=== PATIENT | female | born 1955 | race African-American/Black ===

== ENCOUNTER 2022-03-04 07:08 | Outpatient (CLI) | payer BC, SELFPAY ==
--- NOTE | 2022-03-04 07:15 | CRLHL7_ITS ---
For Patients: As a result of the Century Cures Act, medical imaging exams and procedure reports are released immediately into your electronic medical record. You may view this report before your referring provider. If you have questions, please contact your health care provider. INDICATION: Left-sided back pain. COMPARISON: 11/13/2015 TECHNIQUE: Sagittal T1, T2, and STIR sequences. Axial T1 and T2 weighted sequences. FINDINGS: Mild lumbar curve convex the left. In sagittal plane, interval increased degenerative grade 1 anterolisthesis of L5 on S1 measures approximately 5 mm. Otherwise, normal alignment. No fractures. No vertebral body loss of height. No evidence injury. No suspicious osseous lesions. Normal conus terminates at L1-2. T12-L1 L1-2 L2-3: No spinal canal or neural foraminal narrowing. L2-3: Disc degeneration. Diffuse disc bulge eccentric to the left. No narrowing of spinal canal. Mild narrowing of the left neural foramen. No narrowing of the right neural foramen. L3-4: Disc degeneration. Diffuse disc bulge eccentric to the left. No narrowing of spinal canal. Mild to moderate narrowing of bilateral foramina. Mild facet arthropathy. L4-5: Disc degeneration. Posterior disc herniation. Mild narrowing of spinal canal. Mild to moderate right and moderate left neural foraminal narrowing. Potential impingement of the exiting left L4 nerve root. Mild facet arthropathy. L5-S1: Grade 1 anterolisthesis. Disc degeneration and unroofed posterior disc bulge. Mild narrowing of spinal canal. No cathy impingement of the traversing S1 nerve roots. Oblique orientation of bilateral foramina with mild right and moderate severe left neural foraminal narrowing. Impingement of the exiting left L5 nerve root. Severe facet arthropathy. Degenerative changes of the SI joints. IMPRESSION: 1. Interval increase degenerative grade 1 anterolisthesis of L5 on S1. 2. Otherwise normal alignment. No fractures. 3. Interval progression of lumbar spondylosis. 4. At L3-4, [id number] narrowing of either neural foramina 5. At L4-5, mild narrowing of spinal canal. Mild to moderate right and moderate left neural foraminal narrowing. Potential impingement of the exiting left L4 nerve root 6. At L5-S1, mild right and moderate severe left neural foraminal narrowing. Impingement of the exiting left L5 nerve root Dictated by Christos Briones MD @ 03/04/2022 10:30:42 AM (Electronically Signed)
== END 2022-03-04 07:09 | disposition home or self-care (01) ==
PROVIDERS: PCP Physician Assistant Medical; Visit Provider Orthopaedic Surgery Orthopaedic Surgery of the Spine
DX: M54.50 Low back pain, unspecified (principal); M51.26 Other intervertebral disc displacement, lumbar region; M47.896 Other spondylosis, lumbar region
CPT/HCPCS: 72148

== ENCOUNTER 2022-03-08 08:17 | Outpatient (CLI) | payer BC, SELFPAY ==
[2022-03-08 15:00] LABS: Albumin* 4.4 g/dL (3.3-5.0)
[2022-03-08 15:01] LABS: Chloride* 103 mmol/L (96-114); Potassium* 4.7 mmol/L (3.6-5.1); Sodium* 138 mmol/L (135-149)
[2022-03-08 15:03] LABS: Bilirubin Total* 0.6 mg/dL (0.1-1.5); Carbon Dioxide* 29 mmol/L (20-32); Cholesterol* 156 mg/dL (90-199); Estimated Glomerular Filt Rate 63 ml/min
[2022-03-08 15:04] LABS: Alanine Aminotransferase* 21 U/L (4-35); Alkaline Phosphatase* 68 U/L (40-150); Aspartate Amino Transferase* 24 U/L (12-35); Blood Urea Nitrogen* 23 mg/dL (7-30); Glucose* 116 mg/dL (60-115); Total Protein* 7.4 g/dL (6.0-8.3); Triglycerides* 118 mg/dL (40-149); Uric Acid* 6.6 mg/dL (2.2-8.4)
[2022-03-08 15:05] LABS: Calcium* 9.5 mg/dL (8.4-10.6); HDL Cholesterol* 65 mg/dL (>=50); LDL Cholesterol Calculated 67 mg/dL (<100)
== END 2022-03-08 08:18 | disposition home or self-care (01) ==
PROVIDERS: PCP Physician Assistant Medical; Visit Provider Physician Assistant Medical
DX: Z01.419 Encounter for gynecological examination (general) (routine) without abnormal findings (principal); M10.9 Gout, unspecified; I10 Essential (primary) hypertension; R73.03 Prediabetes
CPT/HCPCS: 80053; 80061; 84443; 84550

== ENCOUNTER 2024-01-05 10:38 | Outpatient (CLI) | payer BC, SELFPAY | END 2024-01-05 10:39 | disposition home or self-care (01) | PROVIDERS: PCP Physician Assistant Medical; Visit Provider Physician Assistant Medical | DX: Z00.00 Encounter for general adult medical examination without abnormal findings (principal); R53.83 Other fatigue; E66.9 Obesity, unspecified; R73.03 Prediabetes; I10 Essential (primary) hypertension; E78.5 Hyperlipidemia, unspecified; M10.9 Gout, unspecified; Z11.3 Encounter for screening for infections with a predominantly sexual mode of transmission; Z11.59 Encounter for screening for other viral diseases | CPT/HCPCS: 80053; 80061; 82306; 83880; 84443; 84550; 86703; 86803 ==

== ENCOUNTER 2024-01-13 14:58 | Outpatient (CLI) | payer BC, SELFPAY ==
--- NOTE | 2024-01-13 15:30 | CRLHL7_ITS ---
For Patients: As a result of the Century Cures Act, medical imaging exams and procedure reports are released immediately into your electronic medical record. You may view this report before your referring provider. If you have questions, please contact your health care provider. INDICATION: Low back pain. Leg pain. TECHNIQUE : Lumbar spine MRI without contrast. COMPARISON: Lumbar spine MRI from 03/04/2022. FINDINGS : Five lumbar type vertebral bodies, with the last fully formed disc space designated as L5-S1. Slightly accentuated lumbar lordosis. No recent compression fracture or marrow replacing process. Lower cord/conus signal is normal. The conus terminates at a normal location. No intradural lesion. No extraspinal soft tissue abnormalities. Discs/Endplates: T11-12 advanced disc height loss, disc desiccation and endplate remodeling. L2-3 through L5-S1 disc dehydration. The remaining discs are within normal limits. Findings at individual levels as follows: T11-12: Mild disc bulge with underlying osteophytic ridging. Bilateral low-grade facet arthrosis. Mild left neural foraminal stenosis. No right neural foraminal stenosis or spinal canal stenosis. T12-L1: No spinal canal or neural foraminal stenosis. L1-2: Minimal disc bulge. No spinal canal or neural foraminal stenosis. L2-3: Mild disc bulge. Bilateral low-grade facet arthrosis. Mild bilateral neural foraminal stenosis. No spinal canal stenosis. L3-4: Mild disc bulge. Bilateral low-grade facet arthrosis. Mild bilateral neural foraminal stenosis. No spinal canal stenosis. L4-5: Moderate disc bulge. A superimposed broad-based central disc protrusion. Bilateral facet arthrosis. Moderately advanced spinal canal stenosis. Mild right and moderate left neural foraminal stenosis. Stir hyperintensity involving the posterior elements compatible with stress reaction/degenerative inflammation. L5-S1: 6 millimeters grade 1 anterolisthesis. Superior disc unroofing and superimposed moderate disc bulge with underlying osteophytic ridging, asymmetric to the left. Moderate spinal canal stenosis. High-grade bilateral facet arthrosis. Mild right and advanced left neural foraminal stenosis with impingement of the exiting left L5 nerve root. Imaged SI joints: Bilateral arthrosis. Imaged sacrum: Within normal limits. IMPRESSION: 1. At L4-5, moderately advanced spinal canal stenosis from spondylosis including a broad-based central disc protrusion. Stress reaction/degenerative inflammation involving the posterior elements. Progressed since prior examination. 2. At L5-S1, moderate spinal canal stenosis from degenerative anterolisthesis/facet arthrosis. Advanced left neural foraminal stenosis with impingement of the exiting left L5 nerve root. Progressed since prior. 3. Low-grade spinal canal/neural foraminal narrowing elsewhere, without impingement on neural structures as detailed above. Dictated by Ovidio Dao MD @ 01/13/2024 4:28:10 PM (Electronically Signed)
== END 2024-01-13 14:59 | disposition home or self-care (01) ==
LOC: MRI 15:00
PROVIDERS: PCP Physician Assistant Medical; Visit Provider Orthopaedic Surgery Orthopaedic Surgery of the Spine
DX: M54.50 Low back pain, unspecified (principal); M47.896 Other spondylosis, lumbar region; M51.26 Other intervertebral disc displacement, lumbar region
CPT/HCPCS: 72148

== ENCOUNTER 2024-02-02 09:14 | Outpatient (CLI) | payer BC, SELFPAY ==
--- NOTE | 2024-02-02 10:20 | W.ANESCHARGE ---
Anesthesia Charges Start Date/Time Anesthesia Start Date: 02/02/24 Anesthesia Start Time: 09:52 Stop Date/Time Anesthesia Stop Date: 02/02/24 Anesthesia Stop Time: 10:16
--- NOTE | 2024-02-02 11:29 | W.ANESCHARGE ---
Anesthesia Charges Start Date/Time Anesthesia Start Date: 02/02/24 Anesthesia Start Time: 09:52 Stop Date/Time Anesthesia Stop Date: 02/02/24 Anesthesia Stop Time: 10:16
== END 2024-02-02 09:15 | disposition home or self-care (01) ==
LOC: OP CLINIC 09:14
PROVIDERS: PCP Physician Assistant Medical; Visit Provider Surgery
DX: Z12.11 Encounter for screening for malignant neoplasm of colon (principal); K63.5 Polyp of colon
CPT/HCPCS: 00811; 00812; 45385; 88305; J2704

== ENCOUNTER 2024-03-22 13:57 | Outpatient (CLI) | payer BC, SELFPAY ==
--- NOTE | 2024-03-22 14:00 | CRLHL7_ITS ---
For Patients: As a result of the Century Cures Act, medical imaging exams and procedure reports are released immediately into your electronic medical record. You may view this report before your referring provider. If you have questions, please contact your health care provider. BILATERAL SCREENING MAMMOGRAM WITH COMPUTER-AIDED DETECTION AND TOMOSYNTHESIS TECHNIQUE: CC and MLO views were obtained. These mammographic images have been obtained using full-field digital technique. These mammographic images were interpreted with the benefit of computer-aided detection. Breast Tomosynthesis was used in this interpretation. COMPARISON FILM: 06/12/21, 05/27/20, 12/01/18. FINDINGS: There are scattered areas of fibroglandular density IMPRESSION: There is no radiographic evidence for malignancy. ASSESSMENT: BI-RADS Category 1: Negative RECOMMENDATION: Routine screening mammogram in 1 year. A lay language report of this examination will be provided to the patient. Dino Yoo M.D. Diagnostic Radiologist [email or web address] KELLEY/Dictated by: Dino Yoo MD @ 03/23/2024 9:09:00 AM (Electronically Signed)
--- NOTE | 2024-03-22 14:30 | CRLHL7_ITS ---
For Patients: As a result of the Century Cures Act, medical imaging exams and procedure reports are released immediately into your electronic medical record. You may view this report before your referring provider. If you have questions, please contact your health care provider. DXA BONE MINERAL DENSITY STUDY Reason for exam: Screening. Current height (in): 59. Weight (lb): 216. Menopause age: 56. Ethnicity: Black. 1. Have you had a previous hip or vertebral fracture? No. 2. Have you had any fractures during your adult life which did not result from significant trauma (e.g., auto accident)? No. 3. Did either of your parents have a hip fracture? Yes. 4. Do you smoke? No. 5. Have you ever taken Glucocorticoids? Yes. 6. Do you have rheumatoid arthritis? No. 7. Do you have secondary osteoporosis? No. 8. Do you drink 3 or more alcoholic drinks per day? No. 9. Are you being treated for osteoporosis? No. 10. Have you ever taken any of the following medications: Actonel, Evista, Fosamax, Miacalcin, Reclast, Boniva, Forteo, HRT (i.e. estrogen/hormone therapy), Protelos, Prolia, Vitamin D, Calcium, other ??? please specify. ANSWER: Yes, vitamin D and calcium. 11. Do you have any of the following medical conditions: Anorexia or bulimia, asthma or emphysema, end stage renal disease, hyperparathyroidism, any seizure disorders, cancer, inflammatory bowel diseases, hysterectomy, other ??? please specify. ANSWER: No. 12. What was your maximum height (inches)? 60. 13. Do you perform weight bearing exercise regularly? Yes. 14. Do you regularly consume dairy products? Yes. 15. Do you drink caffeinated beverages? Yes. 16. At what age did your period start? 13. 17. Are you premenopausal? No. 18. How many full term pregnancies have you had? 3. 19. Have you ever missed your period for more than 6 months in a row (not including or menopause)? No. TECHNIQUE: Bone mineral density study was performed using the [employer]. FINDINGS: The results of the study expressed as bone mineral density (BMD) are as follows: Lumbar spine L1 to L4: BMD: 1.020 g/cm2. T-score: -0.2. Z-score: 0.9. Neck Left: BMD: 0.737 g/cm2. T-score: -1.0. Z-score: -0.2. Right: BMD: 0.722 g/cm2. T-score: -1.1. Z-score: -0.3. Total Left: BMD: 0.978 g/cm2. T-score: 0.3. Z-score: 0.7. Right: BMD: 1.007 g/cm2. T-score: 0.5. Z-score: 0.9. IMPRESSION: Osteopenia. *Comparison exams done prior to 12/2019 were performed on different unit, [employer]. FRAX 10-year Fracture Risk Major Osteoporotic Fracture: 20 percent Hip Fracture: 1.4 percent Reported Risk Factors: [place] () Neck BMD=0.722, BMI=43.6, parental fracture, glucocorticoids Dino Yoo M.D. Diagnostic Radiologist [email or web address] SP/Dictated by: Dino Yoo MD @ 03/23/2024 11:07:00 AM (Electronically Signed)
== END 2024-03-22 13:58 | disposition home or self-care (01) ==
LOC: MAMMO 13:58
PROVIDERS: PCP Physician Assistant Medical; Visit Provider Physician Assistant Medical
DX: Z12.31 Encounter for screening mammogram for malignant neoplasm of breast (principal); Z13.820 Encounter for screening for osteoporosis; M85.89 Other specified disorders of bone density and structure, multiple sites
CPT/HCPCS: 77063; 77067; 77080

== ENCOUNTER 2025-01-14 08:17 | Outpatient (CLI) | payer BC, SELFPAY | END 2025-01-14 08:18 | disposition home or self-care (01) | PROVIDERS: PCP Physician Assistant Medical; Visit Provider Physician Assistant Medical | DX: E55.9 Vitamin D deficiency, unspecified (principal); R53.83 Other fatigue; R73.03 Prediabetes; E66.01 Morbid (severe) obesity due to excess calories; I10 Essential (primary) hypertension; E78.5 Hyperlipidemia, unspecified; M10.9 Gout, unspecified | CPT/HCPCS: 80053; 80061; 82306; 82607; 84443; 84550 ==

== ENCOUNTER 2025-05-31 10:07 | Outpatient (CLI) | payer BC, SELFPAY ==
--- NOTE | 2025-05-31 10:15 | CRLHL7_ITS ---
For Patients: As a result of the Century Cures Act, medical imaging exams and procedure reports are released immediately into your electronic medical record. You may view this report before your referring provider. If you have questions, please contact your health care provider. INDICATION: BILATERAL SCREENING MAMMOGRAM, ASYMPTOMATIC 69 Y/O FEMALE COMPARISON: 03/22/2024, 06/12/2021, 05/27/2020 TECHNIQUE: Digital mammogram in CC and MLO projections including computer-aided detection (CAD) and tomosynthesis. BREAST COMPOSITION: There are scattered areas of fibroglandular density. FINDINGS: No suspicious findings. ASSESSMENT: BI-RADS 1 Negative RECOMMENDATION: Annual screening mammogram. A lay language report of this examination will be provided to the patient. Dictated by: Dino Yoo MD @ 05/31/2025 11:16:40 (Electronically Signed)
== END 2025-05-31 10:08 | disposition home or self-care (01) ==
LOC: MAMMO 10:08
PROVIDERS: PCP Physician Assistant Medical; Visit Provider Physician Assistant Medical
DX: Z12.31 Encounter for screening mammogram for malignant neoplasm of breast (principal)
CPT/HCPCS: 77063; 77067